=== PATIENT | female | born 1985 | race Caucasian/White ===

== ENCOUNTER 2024-05-17 06:43 | Day surgery (SDC) | payer OTHER, MEDICAID, SELFPAY ==
[2024-05-14 13:56] VITALS: BMI 24.2
[2024-05-17] VITALS (13 sets, daily range): BP systolic 109–130; BP diastolic 65–99; PULSE 67–98; RESP 12–19; TEMP 36.2–36.8; O2SAT 94–99; BMI 24.2; BMI 24.5
--- NOTE | 2024-05-17 | PATH_ITS ---
[facility] Accession Number: [id number] No. of containers..01 Tissue . 01 Material submitted: . uterus - UTERUS AND BILATERAL FFALLOPIAN TUBES AND FIBROID . 01 Diagnosis: UTERUS AND BILATERAL FALLOPIAN TUBES AND FIBROID, LAPAROSCOPIC SUPRACERVICAL HYSTERECTOMY AND BILATERAL SALPINGECTOMY AND FIBROIDECTOMY (WEIGHT 188 GRAMS; AND SEPARATE NODULE 36 GRAMS): Proliferative endometrium, negative for endometrioid intraepithelial neoplasia or malignancy. Myometrium involved by multiple leiomyomas (6 mm-37 mm in greatest dimension); negative for significant atypia. Uterine serosa with no significant histomorphologic abnormality. Fallopian tubes x2 with no significant histomorphologic abnormality. Separate leiomyoma (5.0 x 4.9 x 3.2 cm); negative for atypia. [facility] 05/23/2024 1258 Local . 01 Electronically signed: . Vane Uriostegui MD, Pathologist NPI- [id number] . 01 Gross description: . Received in formalin with two patient identifiers and uterus, bilateral fallopian tubes, and fibroid, is a supracervical hysterectomy (188 gram uterus, 7.1 cm superior to inferior, 6.5 cm medial to lateral, 8.7 cm anterior to posterior) with two attached fimbriated fallopian tubes (due to distortion of the serosal reflections, orientation cannot be definitively determined, 4.7 x 1.0 cm and 5.2 x 1.0 cm, respectively), a separate, smooth, spheroid, rubbery, soft tissue fragment (36 grams, 5.0 x 4.9 x 3.2 cm), and no cervix or additional adnexa. . The uterus has brock, roughened serosa, and the margins are inked blue. A small segment of possible endocervical canal is present measuring 0.9 cm in length. The endometrial cavity is 2.7 cm from cornu to cornu, and 4.4 cm in length with brock, velvety endometrium with a pedunculated red-brock mass measuring 2.5 x 2.0 x 1.8 cm. The endometrium averages 0.3 cm thick, and sectioning the endometrial lesion reveals the cut surface to be pink and soft with distinct separation between the endometrium and the myometrium with the cut surface appearing grossly similar to myometrium. The myometrium is brock and moderately trabecular, measuring up to 3.1 cm in maximum thickness, with multiple well-circumscribed, white, whorled nodules from 0.6 to 3.7 cm in greatest dimension. No hemorrhage or necrosis are identified. . The separate nodule has a white, whorled cut surface with no hemorrhage or necrosis identified. . Both tubes have violaceous serosa with no cysts identified. The longer tube has several well-circumscribed, hemorrhagic lesions 0.1 to 0.9 cm in greatest dimension. Sectioning both tubes reveals an unremarkable stellate lumen. . Cloth Tester sections are submitted as follows: A1: Full thickness section, including endometrial lesion. A2: Full thickness section. A3: Cloth Tester margins. A4: Intramural nodules. A5: Separate nodule. A6: Longer fallopian tube to include one-half of bisected fimbriae and cross-sections, including hemorrhagic lesions. A7: [place] fallopian tube to include one-half of bisected fimbriae and cross-sections. ([id number]) /MRV 05/18/2024 1736 Local . 01 Pathologist provided ICD-10: D25.9, N94.6, N93.9 . 01 CPT . 447741 Specimen Comment: A courtesy copy of this report has been sent to [phone] Performed at: [address] [facility], [place], [place] [id number] MD Mello Curtis MD Phone: [phone]
--- NOTE | 2024-05-17 06:42 | P.HPOB_ITS ---
History of Present Illness History of Present Illness Reason for admission: pelvic pain Narrative: Renetta Michael is a 38 year old female G0 who presents for a laparoscopic supracervical hysterectomy with bilateral salpingectomy secondary to an enlarged fibroid uterus, dysmenorrhea, pelvic pain, and abnormal uterine bleeding. She had an endometrial biopsy in the office which was benign. [facility] Medical History (Updated 05/14/24 @ 13:54 by Quiana Pantoja RN) Epilepsy Surgical History (Updated 05/14/24 @ 13:56 by Quiana Pantoja RN) Hx of sinus surgery (2010) Hx of fusion of cervical spine (2007) Hx of brain surgery (2008) Social History Smoking Status: Former smoker Meds Home Medications and Allergies Home Medications Medication Instructions Recorded Confirmed Type tranexamic acid 500 mg tablet 1,500 mg PO TID PRN Bleeding 05/04/24 05/16/24 History Allergies Allergy/AdvReac Type Severity Reaction Status Date / Time No Known Drug Allergies Allergy Verified 05/16/24 16:32 Exam Narrative Exam Narrative: HEENT: No thyromegaly, no anterior cervical or supraclavicular lymphadenopathy. Lungs:Clear to auscultation bilaterally, no wheezes. Cardiovascular: Regular rate and rhythm, no murmurs, rubs, or gallops. Abdomen: No scars. No hepatosplenomegaly. No masses palpable. External genitalia: Normal Vagina: Normal Cervix: Normal Bimanual exam: 12 Week size anteverted uterus. Mobile. Extremities: No edema Assessment & Plan Assessment & Plan narrative: Assessment: 38-year-old 0 with an enlarged fibroid uterus, dysmenorrhea, pelvic pain, and abnormal uterine bleeding with a negative endometrial biopsy Desires definitive surgical management Plan: Laparoscopic supracervical hysterectomy with bilateral salpingectomy The risks, benefits, and alternatives to the procedure were explained to the patient. The risks including bleeding, infection, injury to the bowel, bladder, or ureters. She also understands that there is a possibility of an open procedure. A full par Q was held and consent form was signed. Time-Based Coding :: [TOTAL MINUTES] spent with patient and on the chart (including review of chart, obtaining history, exam, reviewing outside data, placing orders, documenting exam and treatment plan, and counseling patient) on [DATE].
--- NOTE | 2024-05-17 06:46 | PM.PREOP ---
Pre-operative Note Interval Note History & Physical reviewed/Exam performed by Physician: Yes Changes to H&P: No H&P completed within 30 days and has changed as indicated here:: 05/17/24
[2024-05-17] MEDS: LACTATED RINGERS 1,000 ML 42 ML IV ×3 (07:11→12:22)
[2024-05-17] MEDS: SCOPOLAMINE 1 PATCH TOP (07:13)
[2024-05-17] MEDS: ACETAMINOPHEN IV 1,000 MG/100 ML VIAL 400 MG IV (07:20)
[2024-05-17] MEDS: CEFAZOLIN 2 GM/100 ML PREMIX 100 ML IV (07:55)
--- NOTE | 2024-05-17 08:26 | SUR.OPER ---
Lithotomy on padded OR bed. [place] Pad Positioner under torso. Head on pillow, arms padded and tucked at sides. Legs secured in padded yellow fins stirrups.
[2024-05-17] MEDS: BUPIVACAINE 0.5% (PF) 30 ML, EPINEPHrine 0.15 MG INJ (08:35)
--- NOTE | 2024-05-17 11:24 | PM.OP.1 ---
Procedure & Clinicians Procedure: Exploratory laparotomy Cystorrhaphy 83828 Same procedure as scheduled: No Indications: 38 year old female G0 who presents for a laparoscopic supracervical hysterectomy with bilateral salpingectomy secondary to an enlarged fibroid uterus, dysmenorrhea, pelvic pain, and abnormal uterine bleeding. During her laparoscopic procedure with Dr. Fragoso, an inadvertent trocar injury to the bladder was appreciated, therefore, Urology was consulted for evaluation and management. Surgeon: Carlos Altamirano Smokehouse Operator: Bertha Fragoso Click Yes if Unassisted: No Anesthesia Type: General Operative Notes Findings: Anterior and posterior bladder wall injury consistent with a through and through trocar injury to the bladder. Closure Type: not applicable Specimen(s): none sent Applied: catheter Estimated Blood Loss (mL): 5 Blood products transfused: none Procedure in detail: I was consulted to present to OR 2 for evaluation of a possible trocar injury to the bladder during a laparoscopic supracervical hysterectomy with bilateral salpingectomy with Dr. Fragoso. Patient had already been prepped and draped using standard sterile technique, please refer to SHAFT HEADMAN's dictation for separate details regarding this. The injury was noted to be intraperitoneal, therefore, the decision was made to proceed with a Pfannensteil incision. This incision was sharply incised using a 10 blade. The subcutaneous tissue and fascia was incised using a combination of sharp and Bovie electrocautery dissection. The fascia was then sharply incised and the rectus muscles were spread bluntly. The rectus fascia was then opened, exposing the pre-peritoneal space. Blunt dissection was utilized to identify the peritoneum which was noted to have a small hole from a prior trocar placement. This was sharply opened wide enough to allow for extraction of the uterus and specimen bag. The cota catheter was then filled with roughly 200cc of saline and a bladder leak was appreciated on the anterior bladder wall and the posterior bladder wall, consistent with a through and through trocar injury. A 10cm cystotomy incision was then made, incorporating the previously mentioned anterior cystotomy. This incision was made using bovie electrocautery. The bladder was then fully inspected from the inside. The cota catheter and balloon were easily visualized. Both ureteral orifices were noted to be orthotopic in nature and not involved. A 2cm laceration in the posterior bladder wall was readily apparent. This incision was then repaired in 2-layers using 3-0 Vicryl in a running fashion. The bladder was then closed in two layers using 3-0 Vicryl. 240cc of saline was then instilled via the cota catheter and no bladder leak was appreciated from either repair site. The bladder was then drained and the peritoneum inspected for active bleeding, none of which was noted. The case was then turned over to the SHAFT HEADMAN team for fascial and wound closure, please see their separate dictation for further details. Recommendations: Cota catheter will remain in place for at least two weeks to allow for the bladder to heal. Will have a cystogram performed prior to removal of the catheter. Recommend anticholinergics for bladder spasmodics. Urology will follow along while she is in the hospital. Complications: none Post-operative Condition: stable Disposition: Acute Care Plan for aftercare: Cota catheter will remain in place for at least two weeks to allow for the bladder to heal. Will have a cystogram performed prior to removal of the catheter. Recommend anticholinergics for bladder spasmodics. Urology will follow along while she is in the hospital.
--- NOTE | 2024-05-17 11:29 | PM.GYNOP.1 ---
Operative Date/Time/Diagnoses Date of procedure: 05/17/24 Time of procedure: 11:29 Pre-op diagnosis: Dysmenorrhea Pelvic pain Enlarged fibroid uterus Menorrhagia Post-op diagnosis: same Procedure & Clinicians Procedure: Procedures Operation Date: 05/17/24 08:00 Actual Procedure Side Surgeon p Laparoscopic Supracervical Hysterectomy with bilateral salpingectomy, w/ mini open lap, repair of cystonomy Bertha Fragoso MD Indications: 38 year old G0 with menorrhagia, dysmnorrhea, pelvic pain and enlarged fibroid uterus Surgeon: Bertha Fragoso Supervisor Ordnance Truck Installation: George Torres Anesthesia Type: General and Local Operative Notes Findings: 12 wk size multifibroid uterus Normal tubes Ovaries bilaterally with endometriosis Small area of endometriosis on the peritoneum over the appendix Normal liver and gallbladder Closure Type: primary Specimen(s): left tube, right tube and uterus Applied: catheter (Baldwin catheter to continuous drainage) Estimated blood loss (mL): 75 Blood products transfused: none Procedure in detail: The patient was taken to the operating room where she was placed in the dorsal supine position. After adequate general endotracheal anesthesia was achieved, she was placed in the dorsal lithotomy position, and prepped and draped in the usual sterile fashion. A time-out was performed. A bivalve speculum was placed into the vagina and the anterior lip of the cervix was grasped with a single-tooth tenaculum. The cervical os was sequentially dilated until the Zumi uterine manipulator could pass easily into the endometrial cavity. The single-tooth tenaculum was removed from the anterior lip of the cervix. The bivalve speculum was removed from the vagina. Attention was turned to the abdomen where 6 cc of 0.5% Marcaine with epinephrine were injected in the umbilical fold. A 5 mm incision was made. The Veress needle was placed into the peritoneal cavity, and its placement confirmed by aspiration and drop test. The abdominal cavity was insufflated with 2.8 L of CO2. The Veress needle was removed, and a 5 mm trocar was placed without difficulty. Two other incisions were made 4 cm lateral to the midline at the level of the umbilicus after 6 cc of 0.5% Marcaine with epinephrine were injected. Two additional 5 mm trocars were placed under direct visualization. The pelvis and abdomen were examined with the findings noted above. The right tube was grasped with an atraumatic grasper. Using the power seal, the mesosalpinx was cauterized and cut all the way down to the cornua of the uterus. The utero-ovarian ligament was cauterized and cut. The broad ligament was cauterized and cut. The bladder flap was created using the power seal with cautery and cut fpc across. The uterine arteries on the right side were cauterized with the power seal. All of this was repeated on the patient's left side. The Zumi was removed from the uterus. The Lisa loop was placed 2 cm above the uterosacral ligaments. The uterus was amputated from the cervix. There was a fibroid sitting at the top of the cervix. This was removed. The endocervical canal was extensively cauterized with the spatula cautery. Hemostasis was achieved. 6 cc of 0.5% Marcaine with epinephrine were injected above the pubic symphysis. A 12 mm incision was made. The 12 mm trocar was placed into the peritoneal cavity. The endobag was placed through the trocar. The fibroid was placed into the bag. Upon attempts at putting the uterus in the bag the bag kept closing. The bag with the fibroid was then removed after the trocar was removed, through the fascial incision. At this point there was some carbon dioxide gas in the Baldwin bag and the tip of the Baldwin was visualized in the peritoneal cavity. Urology, Dr. Altamirano, was consulted intraoperatively and repair of the bladder per a separate dictation The bag with the fibroid and the uterus with the tubes attached were removed through the mini-laparotomy incision. At the completion of the cystotomy repair, the fascia was reapproximated with 0 Vicryl in a running fashion. The subcutaneous layer was copiously irrigated with warm normal saline. Six simple interrupted sutures with 3-0 Vicryl were placed to reapproximate the subcutaneous layer. The skin was closed with 4-0 Monocryl in a subcuticular fashion. The 3 laparoscopy incisions were also closed with 4-0 Monocryl in a subcuticular fashion. Steri-Strips were placed over all of the incisions. The laparoscopy incisions had Allevyn dressings placed, and the mini-laparotomy had a small Aquacel dressing placed. Sponge, lap, and instrument counts were correct x2. The patient tolerated the procedure well, and was taken to PACU in stable condition. Complications: other (Inadvertent cystotomy with repair) Post-operative Condition: stable Disposition: PACU Plan for aftercare: To acute care after recover
[2024-05-17] MEDS: hydrOXYzine 50 MG/ML INJ 25 MG IM (12:13)
[2024-05-17] MEDS: OXYCODONE IR 5 MG TABLET PO ×2 (12:14→16:37)
[2024-05-17] MEDS: ONDANSETRON 4 MG/2 ML INJ IV ×2 (12:14→16:37)
[2024-05-17] MEDS: HYDROMORPHONE 1 MG INJ IV (12:16)
[2024-05-17] MEDS: KETOROLAC 30 MG/ML VIAL IV ×2 (13:01→18:02)
[2024-05-17] MEDS: ACETAMINOPHEN 325 MG TABLET 650 MG PO (13:01)
[2024-05-17] MEDS: LACTATED RINGERS 1,000 ML 100 ML IV (13:02)
[2024-05-17 14:29] LABS: BUN Creatinine Ratio 16.4 (6-22); Blood Urea Nitrogen 11 mg/dL (7-17); Calcium 8.8 mg/dL (8.4-10.2); Carbon Dioxide 22 mmol/L (22-32); Chloride 106 mmol/L (98-107); Estimated Glomerular Filt Rate > 60 mL/min (>60); Glucose 146 mg/dL (70-100); HEMOLYSIS < 15 (0-50); Sodium 133 mmol/L (137-145)
[2024-05-17] MEDS: DOCUSATE 100 MG CAPSULE 200 MG PO (21:17)
[2024-05-18] MEDS: LACTATED RINGERS 1,000 ML 100 ML IV (00:29)
[2024-05-18] MEDS: KETOROLAC 30 MG/ML VIAL IV ×2 (00:30→05:20)
[2024-05-18] MEDS: ACETAMINOPHEN 325 MG TABLET 650 MG PO ×3 (00:31→11:45)
[2024-05-18 05:37] LABS: Add Manual Diff / Slide Review NO; Basophils Absolute Auto 0 /uL (0-100); Basophils Percent Auto 0.3 % (0-2); Eosinophils Absolute Auto 100 /uL (0-450); Eosinophils Percent Auto 0.7 % (2-4); Hematocrit 27.5 % (36-46); Hemoglobin 9.2 g/dL (12.0-16.0); Lymphocytes Absolute Auto 2600 /uL (1100-4500); Lymphocytes Percent Auto 23.6 % (25-40); Mean Corpuscular HGB Conc 33.3 % (30-36); Mean Corpuscular Volume 81.1 fL (80-100); Monocytes Absolute Auto 1000 /uL (0-900); Monocytes Percent Auto 8.8 % (3-14); Neutrophils Absolute Auto 7200 /uL (1500-7000); Neutrophils Percent Auto 66.6 % (50-75); Platelet Count 239 X10^3/uL (150-400); Red Cell Distribution Width 14.6 % (11.6-14.8); White Blood Cell Count 10.8 X10^3/uL (4.5-11.0)
[2024-05-18 05:54] LABS: BUN Creatinine Ratio 9.2 (6-22); Blood Urea Nitrogen 7 mg/dL (7-17); Calcium 8.4 mg/dL (8.4-10.2); Carbon Dioxide 24 mmol/L (22-32); Chloride 108 mmol/L (98-107); Estimated Glomerular Filt Rate > 60 mL/min (>60); Glucose 92 mg/dL (70-100); HEMOLYSIS < 15 (0-50); Potassium 3.9 mmol/L (3.4-5.1); Sodium 136 mmol/L (137-145)
[2024-05-18 08:00] VITALS: BP 122/77; PULSE 66; RESP 16; TEMP 36.8; O2SAT 97
--- NOTE | 2024-05-18 08:05 | PM.DS.1 ---
History of Present Illness History of Present Illness Date Patient Seen: 05/18/24 Time Patient Seen: 08:05 Chief complaint: Postoperative recovery Narrative: Renetta Michael is a 38 year old female G0 who presents for a laparoscopic supracervical hysterectomy with bilateral salpingectomy secondary to an enlarged fibroid uterus, dysmenorrhea, pelvic pain, and abnormal uterine bleeding. She had an endometrial biopsy in the office which was benign. Discharge Providers Provider Discharge Date: 05/18/24 Primary care physician: Neha Lew MD Discharge provider: George Torres MD Summary Hospital Course Discharge Diagnosis: Menorrhagia Dysmnorrhea Chronic pelvic pain Enlarged fibroid uterus Minimal pelvic endometriosis Status post laparoscopic supracervical hysterectomy with bilateral salpingectomy and fulguration of endometrial implants, complicated by intraoperative bladder injury requiring laparotomy for bladder repair Hospital Course: On the morning of 05/17/2024, the patient underwent laparoscopic supracervical hysterectomy with bilateral salpingectomy and fulguration of endometrial implants. During the course of that surgery however bladder injury was noted and intraoperative urologic consultation obtained. Full details of both procedures are well summarized in the operative notes of that date by Dr. Bertha Fragoso (SUPPLY TECHNICIAN), and Dr. Carlos Altamirano (UROL). Following her surgery the patient has done extremely well with prompt return of bowel function, she is ambulating independently, tolerating regular diet, and her pain is well controlled with oral pain medications. She will be discharged at this time to home with an indwelling Baldwin catheter and leg bag after counseling regarding precautionary symptoms, limitations of activity, medications, and follow-up which will be in 1 week or less. She will be scheduled to have cystogram in 2 weeks with removal of the catheter at that time if bladder integrity is confirmed. Medications at discharge will include resumption of all preadmission medications and oxycodone 5 mg p.o. Q 4-6 hours as needed for pain, dispense 20 with no refills, and Zofran 8 mg p.o. every 8 hours as needed for nausea and vomiting. Status at Discharge Cognitive/behavioral status at discharge: oriented Functional status at discharge: independent ambulation Overall status at discharge: patient is progressing back to baseline Time Spent with Patient Time spent: Less than 30 minutes Exam Vital Signs (past 8 hours): Oxygen Delivery Method Room Air Oxygen Flow Rate 0 Const General: cooperative and comfortable Nutritional Appearance: average body habitus Orientation: alert and oriented x3 HENMT Head: normal to inspection, atraumatic and abrasion Ears: hearing grossly normal bilaterally Face and sinus: face symmetric Eyes General: appearance normal, both eyes and all related structures Conjunctivae: conjunctivae normal Sclera: sclerae normal EOM: EOM intact bilaterally Neck Neck: normal visual inspection Resp Effort & Inspection: normal respiratory effort and able to speak in complete sentences Auscultation: clear to auscultation bilaterally Cardio Rate: regular rate Rhythm: regular rhythm Heart Sounds: S1 normal, S2 normal and no murmurs GI Inspection: normal to inspection and incision (Surgical dressings clean and dry) Palpation: soft, no hepatosplenomegaly and tender (Mild, diffuse postsurgical tenderness) External Female Exam: other (No significant bleeding noted) Extrem General: no calf tenderness Psych Appearance: grossly normal Mental Status: mental status grossly normal Speech and Movement: speech and movement normal Mood: congruent mood Affect: normal affect Attitude: cooperative Thought Process: normal Thought Content: normal Judgment: judgment good Objective Labs 05/18/24 05:10 05/18/24 05:10 Labs: Laboratory Results - last 24 hr 05/17/24 05/18/24 14:00 05:10 WBC 10.8 RBC 3.40 L Hgb 9.2 L Hct 27.5 L MCV 81.1 MCH 27.0 MCHC 33.3 RDW 14.6 Plt Count 239 Neut % (Auto) 66.6 Lymph % (Auto) 23.6 L [place] % (Auto) 8.8 Eos % (Auto) 0.7 L Baso % (Auto) 0.3 Neut # (Auto) 7200 H Lymph # (Auto) 2600 [place] # (Auto) 1000 H Eos # (Auto) 100 Baso # (Auto) 0 Sodium 133 L 136 L Potassium 4.0 3.9 Chloride 106 108 H Carbon Dioxide 22 24 BUN 11 7 Creatinine 0.67 0.76 Estimated GFR > 60 > 60 BUN/Creatinine Ratio 16.4 9.2 Glucose 146 H 92 Calcium 8.8 8.4 PFSH Medical History Epilepsy Surgical History Hx of sinus surgery (2010) Hx of fusion of cervical spine (2008) Hx of brain surgery (2009) Social History household members: family Smoking Status: Former smoker alcohol intake: current Discharge Assessment & Plan Assessment and Plan Assessment: Menorrhagia Dysmnorrhea Chronic pelvic pain Enlarged fibroid uterus Minimal pelvic endometriosis Status post laparoscopic supracervical hysterectomy with bilateral salpingectomy and fulguration of endometrial implants, complicated by intraoperative bladder injury requiring laparotomy for bladder repair Plan of Treatment: Routine postoperative care with indwelling Baldwin catheter x2 weeks. Cystogram to be scheduled for 2 weeks postop to evaluate bladder integrity prior to catheter removal. Discharge Plan Discharge Plan Patient Disposition: Home Provider Discharge Comment: Call with fever, chills, redness or drainage around the incisions, or bleeding vaginally more than spotting to light Call with bright red blood in the Baldwin bag Ibuprofen 600 mg every 6 hours as needed Tylenol 650 mg every 6 hours as needed Stool softener as needed Discharge orders & Medications Discharge Orders: Discharge (Order); Ordered 05/18/24 Ordered By: George Torres Prescriptions: New oxycodone 5 mg tablet 5 mg PO Q4H PRN (Reason: pain) Qty: 20 0RF ondansetron HCl 8 mg tablet 8 mg PO Q8H PRN (Reason: nausea and vomiting) Qty: 10 0RF Discontinued tranexamic acid 500 mg tablet 1,500 mg PO TID PRN (Reason: Bleeding) Follow up/Referrals: Bretha Fragoso MD [Physician] - (Dr. Fragoso we will call patient on May 21, 2024 to check in and then we will set up a 2 week appointment for a cystogram and appointment with) Diet/Activity/Treatments Diet: Regular Activity: No heavy lifting Skin/Wound/Dressing Care Report to your healthcare provider any signs of infection, such as:: chills, fever, increased pain, unusual drainage and unusual redness Dressing: Remove pink dressings with attached white guaze on Tuesday morning after a shower Leave steri strips in place Leave lower dressing in place May shower daily Visit Report/Discharge Packet Instructions: DI for Hysterectomy, DI for Laparoscopy, How to Care for Your Baldwin Catheter -- Female, DI for Prescription Opioid Use Stand Alone Forms: Surgery Discharge Discharge Data Primary Care Provider: Neha Lew Attending Provider: Bertha Fragoso Quality VTE Deep Vein Thrombosis/Pulmonary Embolism Present on Admission: No
[2024-05-18] MEDS: ONDANSETRON 4 MG/2 ML INJ IV (10:23)
[2024-05-18] MEDS: OXYCODONE IR 5 MG TABLET PO (10:24)
--- NOTE | 2024-05-18 11:00 | P.CONS_ITS ---
History of Present Illness Consult details Date Patient Seen: 05/18/24 Time Patient Seen: 10:45 Chief complaint: Postoperative recovery Narrative: 38 year old female G0 who presents for a laparoscopic supracervical hysterectomy with bilateral salpingectomy secondary to an enlarged fibroid uterus, dysmenorrhea, pelvic pain, and abnormal uterine bleeding. During her laparoscopic procedure with Dr. Fragoso, an inadvertent trocar injury to the bladder was appreciated, therefore, Urology was consulted for evaluation and management. She is now POD 1 s/p an exploratory laparotomy and cystorrhaphy. She continues to suffer from abdominal pain and shoulder pain and admits to intermittent discomfort with her urinary catheter. She has been able to ambulate without issues. Meds Home Medications and Allergies Home Medications Medication Instructions Recorded Confirmed Type oxycodone 5 mg tablet 5 mg PO Q4H PRN pain #20 tabs 05/17/24 Rx ondansetron HCl 8 mg tablet 8 mg PO Q8H PRN nausea and 05/18/24 Rx vomiting #10 tabs Allergies Allergy/AdvReac Type Severity Reaction Status Date / Time No Known Drug Allergies Allergy Verified 05/16/24 16:32 Review of Systems Review of Systems Narrative: CONSTITUTIONAL: Denies weight loss, fevers, chills. HEENT: Denies change in vision, hearing. RESP: Denies SOB, cough. CV: Denies palpations, CP. GI: Admits to abdominal pain, denies nausea, vomiting, diarrhea. : Admits to some cota catheter discomfort. MSK: Denies myalgia, joint pain. SKIN: Denies rash, pruritus. NEURO: Denies headache, syncope. PSYCH: Denies recent change in mood, anxiety, depression. Exam Vital Signs (past 8 hours): Oxygen Delivery Method Room Air Oxygen Flow Rate 0 Narrative Exam Narrative: GEN: Alert and oriented X3. No acute distress. Well-nourished. EYES: PERRLA, EOMI. HENT: Moist mucus membranes, no scleral icterus, normal neck ROM. RESP: Unlabored breathing, equal rise and fall of chest bilaterally, no cyanosis appreciated. CV: No peripheral edema, unremarkable heart rate. ABD: Soft, appropriately tender to palpation, laparotomy incisions covered with dressing, Pfannensteil incision covered with dressing, no guarding/rebound/rigidity. : Cota catheter secured and draining clear yellow urine. EXT: No edema, clubbing or cyanosis. SKIN: No rashes or lesions. NEURO: No focal neurologic deficits, CN II-XII grossly intact. PSYCH: Cooperative, appropriate mood and affect. Objective Labs 05/18/24 05:10 05/18/24 05:10 Labs: Laboratory Results - last 24 hr 05/17/24 05/18/24 14:00 05:10 WBC 10.8 RBC 3.40 L Hgb 9.2 L Hct 27.5 L MCV 81.1 MCH 27.0 MCHC 33.3 RDW 14.6 Plt Count 239 Neut % (Auto) 66.6 Lymph % (Auto) 23.6 L [place] % (Auto) 8.8 Eos % (Auto) 0.7 L Baso % (Auto) 0.3 Neut # (Auto) 7200 H Lymph # (Auto) 2600 [place] # (Auto) 1000 H Eos # (Auto) 100 Baso # (Auto) 0 Sodium 133 L 136 L Potassium 4.0 3.9 Chloride 106 108 H Carbon Dioxide 22 24 BUN 11 7 Creatinine 0.67 0.76 Estimated GFR > 60 > 60 BUN/Creatinine Ratio 16.4 9.2 Glucose 146 H 92 Calcium 8.8 8.4 PFSH Medical History Epilepsy Surgical History Hx of sinus surgery (2010) Hx of fusion of cervical spine (2007) Hx of brain surgery (2008) Social History household members: family Tobacco & Substance Use Smoking Status: Former smoker alcohol intake: current Assessment & Plan Assessment and plan (1) Intraoperative bladder injury: Status: Acute Plan: 38 year old female G0 who presents for a laparoscopic supracervical hysterectomy with bilateral salpingectomy secondary to an enlarged fibroid uterus, dysmenorrhea, pelvic pain, and abnormal uterine bleeding. During her laparoscopic procedure with Dr. Fragoso, an inadvertent trocar injury to the bladder was appreciated, therefore, Urology was consulted for evaluation and management. She is now POD 1 s/p an exploratory laparotomy and cystorrhaphy. She is otherwise recovering as expected. Discussed catheter care with her in detail to include transitioning from her leg to overnight bag. She will return to clinic in two weeks, the same day as her cystogram, to ensure that her bladder is healed prior to removal of her cota catheter. She was instructed this will likely be on Jun 05 2024. Should she develop severe bladder spasms, would recommend Oxybutynin ER 5mg daily. Please ensure that she is having soft daily bowel movements as constipation can worsen her bladder spasms. Time-Based Coding :: [TOTAL MINUTES] spent with patient and on the chart (including review of chart, obtaining history, exam, reviewing outside data, placing orders, documenting exam and treatment plan, and counseling patient) on [DATE]. PROFEE Charge Codes Inpatient or Observation consultation: [id number]
--- NOTE | 2024-05-18 11:56 | PC.NURSE ---
Pt discharged home at 1200, escorted off floor in wheelchair accompanied by spouse and hospital staff. IV removed, discharge teaching provided including new medications, follow up appointments and worsening symptoms. [place] education provided and reviewed with patient and . Questions answered and concerns addressed. Patient left the floor the floor with all belongings.
--- NOTE | 2024-05-18 12:38 | CM.DANOTE ---
DCP Assessment Note: Pt is a 38yo female, resident of [facility], is admitted for bladder injury. Pt lives in a house with her mother. Pt's Primary Care Provider is Dr. Neha Lew MD and insurance is [employer] and Medicaid. Reviewed chart and team rounds for pt's medical status and initial discharge needs. DCP met w/patient at bedside; introduced self and role. Patient was prepared for discharge and attempting to catch next ferry back home. Per RN, pt denied any other discharge needs at this time, has ferry pass to discharge home. Plan: Pt discharged home with family. CM team will follow closely for coordination of discharge plans. CARLOS Alvarado Discharge Planning/Care Management CM Discharge Assessment Start: 05/18/24 12:36 Freq: Status: Active Protocol: Document 05/18/24 12:36 MW (Rec: 05/18/24 12:37 MW [id number]) Discharge Planning Assessment Assigned Packer Operator Automatic BASILIA Villavicencio DPOA/Assigned Designee Name Mother Grant Contact Information [phone] Advance Directives? No History Provided By Patient,Medical Record Has Patient been admitted in last 30 No days? Prior Living Arrangements House Household Members family Type of transporation used prior to Drives own vehicle admit Independent with ADL's Yes Is patient alert and oriented? Yes Caregiver for Another No Discharge Plan Home Whiteboard Updated in Patient Room with No name and ext. # of Packer Operator Automatic Please Provide Date Initial DC 05/18/24 Assessment Was Performed Next Review Type Continued Stay Review
--- NOTE | 2024-05-24 14:00 | SUR.PHASEI ---
Late entry from Date of Service on 05/17/2024: Dilaudid 0.5 mg IV given for pain; 0.5 mg wasted but forgot to waste in Pyxis machine.
== END 2024-05-18 12:25 | disposition home or self-care (01) ==
LOC: OR 06:44 → AC 06:45
PROVIDERS: PCP Family Medicine; Referring Provider Obstetrics & Gynecology; Visit Provider Obstetrics & Gynecology
PROC: 0UT94ZL Resection of Uterus, Supracervical, Percutaneous Endoscopic Approach (ICD-10-PCS; CPT 58542; principal; 2024-05-17 08:00)
DX: N94.6 Dysmenorrhea, unspecified (principal); D25.9 Leiomyoma of uterus, unspecified; N93.9 Abnormal uterine and vaginal bleeding, unspecified; N99.71 Accidental puncture and laceration of a genitourinary system organ or structure during a genitourinary system procedure
CPT/HCPCS: 58542; 51865; 36415; 80048; 85025; J0134; J0171; J0330; J0690; J1100; J1170; J1885; J2250; J2405; J2704; J3010; J3410; J3490

== ENCOUNTER → 2024-06-01 08:30 | Outpatient (CLI) | payer OTHER, MEDICAID, SELFPAY ==
[2024-05-17 13:04] VITALS: BMI 24.5
--- NOTE | 2024-06-01 08:31 | DI.CT.S_ITS ---
PROCEDURE: CT CYSTOGRAM INDICATIONS: Bladder injury TECHNIQUE: Both before and after gravity instillation of 10% Isovue contrast solution into the bladder through a Baldiwn catheter, 5 mm axial images acquired from the bladder dome to the symphysis. 5 mm thick coronal and sagittal reformats were acquired. For radiation dose reduction, the following was used: automated exposure control, adjustment of mA and/or kV according to patient size. COMPARISON: None. FINDINGS: Image quality: Diagnostic. Bladder: Normal wall thickness. No extravasation. No clots. Distal Ureters: No reflux. Nondilated. PELVIS: Peritoneum and Bowel: Bowel loops demonstrate normal wall thickness and caliber. No free fluid or air. Pelvic Organs: No pelvic mass. Pelvic Nodes: No enlarged lymph nodes. Miscellaneous: Extensive soft tissue edema present anterior to the symphysis pubis and in the ventral subcutaneous fat in the pelvis, as well as extending down into the external genitalia region. Bones: No aggressive osseous abnormality. IMPRESSION: 1. Extensive edema present in the ventral subcutaneous fat, possibly indicating sequelae of trauma. 2. No pelvic bone fracture identified. 3. Intact bladder, unremarkable. Dictated by: Jluis Vazquez M.D. on 06/01/2024 at 10:19 Approved by: Jluis Vazquez M.D. on 06/01/2024 at 10:22
== END ==
PROVIDERS: PCP Family Medicine; Referring Provider Obstetrics & Gynecology; Visit Provider Obstetrics & Gynecology
DX: N99.81 Other intraoperative complications of genitourinary system (principal)
CPT/HCPCS: 72194; Q9967

== ENCOUNTER 2024-06-03 18:28 | Observation (INO) | payer OTHER, MEDICAID, SELFPAY ==
[2024-05-17 13:04] VITALS: BMI 24.5
[2024-06-03] VITALS (8 sets, daily range): BP systolic 109–124; BP diastolic 61–80; PULSE 59–69; RESP 14–18; TEMP 36.9–37.6; O2SAT 100; BMI 24.2
[2024-06-03 19:18] LABS: Add Manual Diff / Slide Review NO; Basophils Absolute Auto 100 /uL (0-100); Basophils Percent Auto 0.6 % (0-2); Eosinophils Absolute Auto 600 /uL (0-450); Eosinophils Percent Auto 4.8 % (2-4); Hematocrit 33.1 % (36-46); Hemoglobin 10.8 g/dL (12.0-16.0); Lymphocytes Absolute Auto 2600 /uL (1100-4500); Mean Corpuscular HGB Conc 32.6 % (30-36); Mean Corpuscular Volume 79.8 fL (80-100); Monocytes Absolute Auto 900 /uL (0-900); Monocytes Percent Auto 7.1 % (3-14); Neutrophils Absolute Auto 8200 /uL (1500-7000); Neutrophils Percent Auto 66.5 % (50-75); Platelet Count 493 X10^3/uL (150-400); Red Blood Cell Count 4.15 X10^6/uL (4.0-5.2); Red Cell Distribution Width 14.6 % (11.6-14.8); White Blood Cell Count 12.3 X10^3/uL (4.5-11.0)
[2024-06-03 19:21] LABS: Alanine Aminotransferase 9 IU/L (<35); Albumin 4.4 g/dL (3.5-5.0); Albumin Globulin Ratio 1.3 (1.0-2.8); Alkaline Phosphatase 55 U/L (38-126); Aspartate Aminotransferase 18 IU/L (14-36); BUN Creatinine Ratio 12.8 (6-22); Bilirubin Total 0.3 mg/dL (0.2-1.3); Blood Urea Nitrogen 10 mg/dL (7-17); Calcium 9.4 mg/dL (8.4-10.2); Carbon Dioxide 25 mmol/L (22-32); Chloride 104 mmol/L (98-107); Estimated Glomerular Filt Rate > 60 mL/min (>60); Globulin 3.4 g/dL (1.7-4.1); Glucose 96 mg/dL (70-100); HEMOLYSIS < 15 (0-50); Lipase 119 U/L (23-300); Sodium 138 mmol/L (137-145); Total Protein 7.8 g/dL (6.3-8.2)
[2024-06-03 19:45] LABS: Pregnancy Test Urine Negative (Negative)
--- NOTE | 2024-06-03 19:47 | ED_ITS ---
HPI - Skin/Abscess/Foreign Bdy General Chief complaint: Skin/Abscess/Foreign Body Stated complaint: Fever/Redness, Sx Site Discomfort Time Seen by Provider: 06/03/24 19:18 Source: patient Mode of arrival: Ambulatory Limitations: no limitations History of Present Illness HPI narrative: Patient is a 38-year-old female who recently underwent a hysterectomy and salpingectomy. Still has her cervix. Still has her ovaries. During the surgery there was an injury to her bladder. Urology was involved. She does had her urinary catheter removed 2 days ago. She comes in the emergency department today because she started to develop discomfort and redness to the left side of the surgical incision. She denies any urinary issues. No change in bowel. No abdominal tenderness. Had a fever earlier today and did take medications for this. No vomiting. No chest pain or shortness of breath. Was told to come to the emergency department by her OB provider. Related Data Previous Rx's Medication Instructions Recorded oxycodone 5 mg tablet 5 mg PO Q4H PRN pain #20 tabs 05/17/24 ondansetron HCl 8 mg tablet 8 mg PO Q8H PRN nausea and 05/18/24 vomiting #10 tabs tramadol 50 mg tablet 50 mg PO Q4H PRN pain #30 tabs 06/01/24 Allergies Allergy/AdvReac Type Severity Reaction Status Date / Time No Known Drug Allergies Allergy Verified 06/01/24 10:36 Review of Systems Constitutional Constitutional: Reports system reviewed and no additional complaints, except as documented Cardiovascular Cardiovascular: Reports system reviewed and no additional complaints, except as documented Respiratory Respiratory: Reports system reviewed and no additional complaints, except as documented Gastrointestinal Gastrointestinal: Reports system reviewed and no additional complaints, except as documented Integumentary/Breasts Skin/Breast: Reports system reviewed and no additional complaints, except as documented Neurologic Neurologic: Reports system reviewed and no additional complaints, except as documented Hematologic/Lymphatic On Anticoagulants: No Patient History Medical History Epilepsy Surgical History Hx of sinus surgery (2010) Hx of fusion of cervical spine (2007) Hx of brain surgery (2008) Social History household members: family Smoking Status: Former smoker alcohol intake: current Smoking Status: Former smoker alcohol intake frequency: a few times a month Substance Use Type: marijuana Exam Initial Vital Signs Initial Vital Signs: Vital Signs Temperature 98.4 F 06/03/24 18:35 Pulse Rate 60 06/03/24 18:35 Respiratory Rate 18 06/03/24 18:35 Blood Pressure 110/61 06/03/24 18:35 Pulse Oximetry 100 06/03/24 18:35 Oxygen Delivery Method Room Air 06/03/24 18:35 Const General: cooperative and comfortable HENMT Head: normal to inspection and normocephalic GI Inspection: normal to inspection and non-distended Palpation: soft and No tender Skin Other: Surgical incision appears well. No dehiscence. There is redness on the left side of the surgical incision. No crepitus. No abscess felt. Course Orders Ordered: ED Orders 06/03/24 18:55 Complete Blood Count AUTO DIFF Stat Comprehensive Metabolic Panel Stat Lactate (Lactic Acid) Stat Lipase Stat Procalcitonin Stat 06/03/24 19:21 Test Urine Stat Urine Culture Stat Urine Microscopic Stat 06/03/24 19:48 CT abdomen pelvis w con Stat 06/03/24 20:00 Blood Culture Stat Acetaminophen (Acetaminophen 325 Mg Tablet) 650 mg PO Q6H [facility] Last Admin: 06/03/24 21:31 Dose: 650 mg Documented By: RUEL Docusate Sodium (Docusate 100 Mg Capsule) 100 mg PO BID [facility] Last Admin: 06/03/24 21:31 Dose: 100 mg Documented By: RUEL Lactated Ringer's (Lactated Ringers) 1,000 mls @ 100 mls/hr IV CONT [facility] Last Admin: 06/03/24 21:32 Dose: 100 mls/hr Documented By: RUEL Clindamycin Phosphate (Cleocin) 600 mg in 50 mls @ 50 mls/hr IV Q8H [facility] Last Admin: 06/03/24 22:18 Dose: 50 mls/hr Documented By: RUEL Ibuprofen (Ibuprofen 600 Mg Tablet) 600 mg PO Q6H [facility] Last Admin: 06/03/24 21:31 Dose: 600 mg Documented By: RUEL Lactobacillus Acidophilus (Lactobacillus Acidophilus Tablet) 1 each PO BIDWM [facility] Naloxone HCl (Naloxone 0.4 Mg/Ml Vial) 0.2 mg IV Q2MIN PRN PRN Reason: Opiate Reversal Ondansetron HCl (Ondansetron 4 Mg/2 Ml Inj) 4 mg IV NOW PRN PRN Reason: Nausea And Vomiting Ondansetron HCl (Ondansetron 4 Mg Odt) 4 mg PO NOW PRN PRN Reason: Nausea And Vomiting Ondansetron HCl (Ondansetron 4 Mg Odt) 4 mg PO Q8HR PRN PRN Reason: Nausea And Vomiting Tramadol HCl (Tramadol 50 Mg Tablet) 50 mg PO QID PRN PRN Reason: Pain, Moderate (4-6) Zolpidem Tartrate (Zolpidem 5 Mg Tablet) 5 mg PO BEDTIME PRN PRN Reason: Sleep Discontinued Medications Ceftriaxone Sodium 1,000 mg/ (Sodium Chloride) 100 mls @ 200 mls/hr IV NOW ONE Stop: 06/03/24 19:47 Last Infusion: 06/03/24 20:35 Dose: Infused Documented By: Admin: 06/03/24 20:01 Dose: 200 mls/hr Documented By: MICHELLE Cefazolin Sodium 1 gm/ Sodium (Chloride) 100 mls @ 200 mls/hr IV NOW ONE Stop: 06/03/24 21:18 Last Admin: 06/03/24 21:32 Dose: 200 mls/hr Documented By: RUEL Vital Signs Vital signs: Vital Signs - 8 hr 06/03/24 18:35 06/03/24 19:13 06/03/24 19:20 Temperature 98.4 F Pulse Rate 60 67 62 Respiratory Rate 18 Blood Pressure 110/61 Pulse Oximetry 100 100 100 Oxygen Delivery Method Room Air 06/03/24 19:20 06/03/24 19:30 06/03/24 19:30 Temperature Pulse Rate 59 L Respiratory Rate Blood Pressure 124/66 115/62 Pulse Oximetry 100 Oxygen Delivery Method 06/03/24 20:00 06/03/24 20:00 06/03/24 20:15 Temperature Pulse Rate 65 69 Respiratory Rate Blood Pressure 109/68 Pulse Oximetry 100 100 Oxygen Delivery Method 06/03/24 20:15 06/03/24 20:30 Temperature Pulse Rate 68 Respiratory Rate Blood Pressure 115/73 Pulse Oximetry 100 Oxygen Delivery Method MDM - Skin/Abscess/Foreign Bdy Medical Records Attestation: I reviewed the patient's medical records. Lab Data Attestation: I reviewed the patient's lab results. 06/03/24 18:55 06/03/24 18:55 Labs: Lab Results 06/03/24 06/03/24 Range/Units 18:55 19:21 WBC 12.3 H (4.5-11.0) X10^3/uL RBC 4.15 (4.0-5.2) X10^6/uL Hgb 10.8 L (12.0-16.0) g/dL Hct 33.1 L (36-46) % MCV 79.8 L (80-100) fL MCH 26.0 (26-34) PG MCHC 32.6 (30-36) % RDW 14.6 (11.6-14.8) % Plt Count 493 H (150-400) X10^3/uL Neut % (Auto) 66.5 (50-75) % Lymph % (Auto) 21.0 L (25-40) % [place] % (Auto) 7.1 (3-14) % Eos % (Auto) 4.8 H (2-4) % Baso % (Auto) 0.6 (0-2) % Neut # (Auto) 8200 H (8310-5812) /uL Lymph # (Auto) 2600 (3937-8585) /uL [place] # (Auto) 900 (0-900) /uL Eos # (Auto) 600 H (0-450) /uL Baso # (Auto) 100 (0-100) /uL Sodium 138 (137-145) mmol/L Potassium 4.0 (3.4-5.1) mmol/L Chloride 104 (98-107) mmol/L Carbon Dioxide 25 (22-32) mmol/L BUN 10 (7-17) mg/dL Creatinine 0.78 (0.52-1.04) mg/dL Estimated GFR > 60 (>60) mL/min BUN/Creatinine Ratio 12.8 (6-22) Glucose 96 (70-100) mg/dL Lactate 0.5 L (0.7-2.1) mmol/L Calcium 9.4 (8.4-10.2) mg/dL Total Bilirubin 0.3 (0.2-1.3) mg/dL AST 18 (14-36) IU/L ALT 9 (<35) IU/L Alkaline Phosphatase 55 (38-126) U/L Total Protein 7.8 (6.3-8.2) g/dL Albumin 4.4 (3.5-5.0) g/dL Globulin 3.4 (1.7-4.1) g/dL Albumin/Globulin Ratio 1.3 (1.0-2.8) Lipase 119 (23-300) U/L Procalcitonin < 0.030 (<0.5) ng/mL Urine RBC None seen (0-5/HPF) Urine WBC 10-30/hpf H (0-5/HPF) Ur Squamous Epith Cells None seen (0-5/HPF) Urine Bacteria Few (2-10) H (None) Ur Culture Indicated? Specimen cultured Vol Urine Centrifuged 10ml (spun) Urine Test Negative (Negative) Urine Dip Bedside Urine Glucose Negative Bedside Urine Bilirubin - Negative Bedside Urine Ketone - Negative Urine Specific [place] 1.025 Bedside Urine Occult Blood +/- Bedside Urine pH 6.0 Bedside Urine Protein - Negative Bedside Urine Urobilinogen - Negative Bedside Urine Nitrite - Negative Bedside Urine Leukocytes +/- [address] scan - abdomen/pelvis: Radiologist's Impression: PROCEDURE: CT ABDOMEN PELVIS W CON INDICATIONS: Recent hysterectomy with bladder injury now with cellulitis TECHNIQUE: After the administration of intravenous contrast, axial sections acquired from the lung bases to the pubic symphysis. Coronal and sagittal reformats were performed. For radiation dose reduction, the following was used: automated exposure control, adjustment of mA and/or kV according to patient size. COMPARISON: [facility], CT, CT CYSTOGRAM, 06/01/2024, 10:02. FINDINGS: Image quality: Diagnostic. Lower Chest: No significant findings. ABDOMEN: Liver: No solid mass. Gallbladder: No radiopaque gallstones or wall thickening. Biliary ducts: No biliary dilation. Pancreas: No ductal dilation. Spleen: Size is within normal limits. Adrenal Glands: No adrenal nodules. Kidneys and Ureters: No hydronephrosis. No solid mass. No complex renal cystic lesion which requires follow up. Stomach and Bowel: Normal colonic caliber, without significant wall thickening. Mild fecal stasis in the colon is seen. No peritoneal abscess collection. Peritoneum: No abnormal intraperitoneal fluid. No free air. Ventral Wall: Enlargement of lower rectus abdominus muscles with heterogeneous enhancement and ill-defined fluid collection anterior to the rectus muscles in lower abdomen/pelvis within abdominal wall subcutaneous soft tissue and show mild peripheral enhancement and extensive surrounding fat stranding and overlying skin thickening. There is likely communication with adjacent left lower rectus abdominus muscle with possible ill-defined intramuscular fluid collection. Abdominal Nodes: No retroperitoneal or mesenteric adenopathy by size criteria. Vessels: Aorta and inferior vena cava are normal in size. PELVIS: Pelvic Organs: Unremarkable. Bladder: No bladder wall thickening, accounting for underdistention. Pelvic Nodes: No enlarged lymph nodes. Miscellaneous: No inguinal hernias are seen. Bones: No aggressive osseous abnormality. IMPRESSION: 1. Extensive cellulitis in lower anterior abdominal wall/pelvic wall with interval worsening of rectus muscle swelling and interval development of ill-defined peripherally enhancing fluid collection in anterior lower abdominal/pelvic wall subcutaneous soft tissue concerning for developing abscess collection and possible intramuscular abscess collection. 2. There is no definite intraperitoneal extension of the abscess collection. No peritoneal free fluid or free air. 3. Other findings are not significantly changed from recent CT cystogram study. MDM Narrative Medical decision making narrative: Patient does have findings that are consistent with a cellulitis. Labs were ordered. Does have a leukocytosis. Blood cultures ordered. Antibiotics started. CT scan does show cellulitis and concern for beginnings of an abscess. Dr. Fragoso with dump [employer] who is the operative surgeon evaluated the patient in the emergency department. Plan will be is to admit to the hospital for IV antibiotics. Discharge Plan Departure Patient Disposition: Home Clinical Impression: Post-operative infection
[2024-06-03 19:50] LABS: Bacteria Urine Few (2-10); Culture Indicated Urine Specimen Cultured; RBC Urine None Seen (0-5/HPF); Squamous Epithelial Cell Urine None Seen (0-5/HPF); Urine Volume 10mL (spun); WBC Urine 10-30/HPF (0-5/HPF)
[2024-06-03 20:00] LABS: Lactate (Lactic Acid) 0.5 mmol/L (0.7-2.1)
[2024-06-03] MEDS: cefTRIAXone 1,000 MG in SODIUM CHLORIDE 0.9% 100 ML 200 MG IV (20:01)
[2024-06-03 20:18] LABS: Procalcitonin < 0.030 ng/mL (<0.5)
--- NOTE | 2024-06-03 20:51 | PM.GYNHP.1 ---
History of Present Illness History of Present Illness Reason for admission: other (wound infection) Narrative: Renetta Michael is a 38 year old female G0 who presented to the ED with a fever, chills and pain and redness at incision. Pt underwent a LSCH/bilat salpingectomy 2 wks ago with an inadverdent cystotomy with repair. Had a CT cystogram on 06/01 which showed no spill. She has been able to void normally. Last evening developed aching and feeling warm with chills. This morning had a temp of 101. PFSH Medical History Epilepsy Surgical History Hx of sinus surgery (2010) Hx of fusion of cervical spine (2007) Hx of brain surgery (2008) Social History household members: family Smoking Status: Former smoker alcohol intake: current Meds Home Medications and Allergies Home Medications Medication Instructions Recorded Confirmed Type oxycodone 5 mg tablet 5 mg PO Q4H PRN pain #20 tabs 05/17/24 06/01/24 Rx ondansetron HCl 8 mg tablet 8 mg PO Q8H PRN nausea and 05/18/24 06/01/24 Rx vomiting #10 tabs tramadol 50 mg tablet 50 mg PO Q4H PRN pain #30 tabs 06/01/24 06/01/24 Rx Allergies Allergy/AdvReac Type Severity Reaction Status Date / Time No Known Drug Allergies Allergy Verified 06/01/24 10:36 Exam Vital Signs (past 8 hours): - 06/03/24 18:35 06/03/24 19:13 06/03/24 19:20 Temperature 98.4 F Pulse Rate 60 67 62 Respiratory Rate 18 Blood Pressure 110/61 Pulse Oximetry 100 100 100 Oxygen Delivery Method Room Air 06/03/24 19:20 06/03/24 19:30 06/03/24 19:30 Temperature Pulse Rate 59 L Respiratory Rate Blood Pressure 124/66 115/62 Pulse Oximetry 100 Oxygen Delivery Method 06/03/24 20:00 06/03/24 20:00 06/03/24 20:15 Temperature Pulse Rate 65 69 Respiratory Rate Blood Pressure 109/68 Pulse Oximetry 100 100 Oxygen Delivery Method 06/03/24 20:15 06/03/24 20:30 Temperature Pulse Rate 68 Respiratory Rate Blood Pressure 115/73 Pulse Oximetry 100 Oxygen Delivery Method Oxygen Delivery Method Room Air Narrative Exam Narrative: Gen: Lying on gurney, NAD Abdomen: Soft and flat. Incision: On the left side, there is an area of erythema. No fluctuance. The area is outlined. CT: Cellulitis. Small fluid collection. Objective Labs 06/03/24 18:55 06/03/24 18:55 Labs: Laboratory Results - last 24 hr 06/03/24 06/03/24 18:55 19:21 WBC 12.3 H RBC 4.15 Hgb 10.8 L Hct 33.1 L MCV 79.8 L MCH 26.0 MCHC 32.6 RDW 14.6 Plt Count 493 H Neut % (Auto) 66.5 Lymph % (Auto) 21.0 L [place] % (Auto) 7.1 Eos % (Auto) 4.8 H Baso % (Auto) 0.6 Neut # (Auto) 8200 H Lymph # (Auto) 2600 [place] # (Auto) 900 Eos # (Auto) 600 H Baso # (Auto) 100 Sodium 138 Potassium 4.0 Chloride 104 Carbon Dioxide 25 BUN 10 Creatinine 0.78 Estimated GFR > 60 BUN/Creatinine Ratio 12.8 Glucose 96 Lactate 0.5 L Calcium 9.4 Total Bilirubin 0.3 AST 18 ALT 9 Alkaline Phosphatase 55 Total Protein 7.8 Albumin 4.4 Globulin 3.4 Albumin/Globulin Ratio 1.3 Lipase 119 Procalcitonin < 0.030 Urine RBC None seen Urine WBC 10-30/hpf H Ur Squamous Epith Cells None seen Urine Bacteria Few (2-10) H Ur Culture Indicated? Specimen cultured Vol Urine Centrifuged 10ml (spun) Urine Test Negative Assessment & Plan Assessment & Plan narrative: Assessment: 38 year old G0 with wound cellulitis Plan: Admit for Observation IV antibiotics Antiemetics Reassess in the am for need for I&D Time-Based Coding :: [TOTAL MINUTES] spent with patient and on the chart (including review of chart, obtaining history, exam, reviewing outside data, placing orders, documenting exam and treatment plan, and counseling patient) on [DATE].
[2024-06-03] MEDS: DOCUSATE 100 MG CAPSULE PO (21:31)
[2024-06-03] MEDS: IBUPROFEN 600 MG TABLET PO (21:31)
[2024-06-03] MEDS: ACETAMINOPHEN 325 MG TABLET 650 MG PO (21:31)
[2024-06-03] MEDS: CEFAZOLIN VIAL 1 GM in SODIUM CHLORIDE 0.9% 100 ML IV (21:32)
[2024-06-03] MEDS: LACTATED RINGERS 1,000 ML 100 ML IV (21:32)
[2024-06-03] MEDS: CLINDAMYCIN 600 MG/50 ML PIGGYBACK 50 MG IV (22:18)
[2024-06-04] VITALS: BP 104/65; PULSE 62; RESP 14; TEMP 36.6; O2SAT 99
[2024-06-04 04:00] VITALS: BP 102/68; PULSE 63; RESP 15; TEMP 36.5; O2SAT 98
[2024-06-04 04:45] LABS: Add Manual Diff / Slide Review NO; Basophils Absolute Auto 100 /uL (0-100); Basophils Percent Auto 0.9 % (0-2); Eosinophils Absolute Auto 700 /uL (0-450); Hematocrit 29.2 % (36-46); Hemoglobin 9.8 g/dL (12.0-16.0); Lymphocytes Absolute Auto 2300 /uL (1100-4500); Lymphocytes Percent Auto 24.6 % (25-40); Mean Corpuscular HGB Conc 33.5 % (30-36); Mean Corpuscular Hemoglobin 26.7 PG (26-34); Mean Corpuscular Volume 79.7 fL (80-100); Monocytes Absolute Auto 900 /uL (0-900); Monocytes Percent Auto 9.8 % (3-14); Neutrophils Absolute Auto 5400 /uL (1500-7000); Neutrophils Percent Auto 57.7 % (50-75); Platelet Count 383 X10^3/uL (150-400); Red Blood Cell Count 3.66 X10^6/uL (4.0-5.2); Red Cell Distribution Width 14.6 % (11.6-14.8); White Blood Cell Count 9.4 X10^3/uL (4.5-11.0)
[2024-06-04] MEDS: CLINDAMYCIN 600 MG/50 ML PIGGYBACK 50 MG IV ×2 (05:29→13:33)
[2024-06-04 08:00] VITALS: BP 116/76; PULSE 56; RESP 15; TEMP 36.5; O2SAT 100
--- NOTE | 2024-06-04 08:45 | DI.US.S_ITS ---
PROCEDURE: US ABDOMEN LIMITED INDICATIONS: cellulitis of lower incision, please evaluate for abscess TECHNIQUE: Real-time focused scanning was performed of the abdomen, with image documentation. COMPARISON: [facility], CT, CT ABDOMEN PELVIS W CON, 06/03/2024, 20:03. FINDINGS: Scan is performed at the area of the incision involving the pubic region. Within this area, there is nonvascular poorly defined fluid seen, which measures 1.4 x 0.5 x 1.9 cm. No focal abscess can be seen. IMPRESSION: Negative for abscess. At the area of clinical concern, there is nonvascular poorly defined fluid seen, likely related to postoperative seroma or hematoma. Phlegmon is possible, however. Dictated by: Jose Muñoz M.D. on 06/04/2024 at 9:26 Approved by: Jose Muñoz M.D. on 06/04/2024 at 9:27
[2024-06-04] MEDS: ACETAMINOPHEN 325 MG TABLET 650 MG PO ×2 (09:25→15:21)
--- NOTE | 2024-06-04 10:28 | CM.DANOTE ---
Patient is a 38 yo female who was admitted OBS Status on 06/03/24 for Post Surgery Infection. Pt has MIGUEL BAI and CORAL for insurance and her PCP is eNha Hopkins at [facility]. EMR was reviewed. Per OBGYN, pt with recent fallopian tube removal and accidental bladder involvement and admitted for post surgical infection and IV-Abx initiated and ultrasound today to determine if pt stable for discharge home or further surgical intervention needed. SW met bedside with pt and her mom and explained role and they confirm that they live on [facility] at home and both are very active and independent at baseline and pt does not use DME for ambulation and no hx of HH or SNF. Pt works and confirms her PCP remains Dr. Lew who is now at [facility]. Pt and mother hopeful for discharge home today and mother transported pt to the hospital and has been staying in a hotel locally so she is available to provide transport home at d/c. Preference is home today if stable and they deny any further discharge planning needs other than a Priority Boarding Pass as ferry system remains challenging and difficult to get a reservation day of discharge. SW updated RN. Plan: SW to follow for ultrasound results to confirm if pt stable for d/c today vs further surgical intervention and to provide Priority Boarding pass at discharge. BASILIA Portillo Discharge Planning/Care Management CM Discharge Assessment Start: 06/04/24 10:26 Freq: Status: Active Protocol: Document 06/04/24 10:26 BF (Rec: 06/04/24 10:27 BF [id number]) Discharge Planning Assessment Assigned Desk Representative BASILIA Guido DPOA/Assigned Designee Name informally mother Ana Contact Information [phone] Advance Directives? No Advance Directives on File No History Provided By Patient,Family Member,Medical Record Has Patient been admitted in last 30 No days? Prior Living Arrangements House Household Members family Type of transporation used prior to Drives own vehicle admit Independent with ADL's Yes Is patient alert and oriented? Yes Caregiver for Another No Barriers to Discharge No Discharge Plan Home Transportation Arrangement mother bedside and plans to transport back to [place] at d/c Referrals Initiated Other Additional Comment Priority Board Pass back to [place] needed Whiteboard Updated in Patient Room with Yes name and ext. # of Desk Representative Review Status In Process Please Provide Date Initial DC 06/04/24 Assessment Was Performed Next Review Type Continued Stay Review
[2024-06-04 12:00] VITALS: BP 114/66; PULSE 82; RESP 16; TEMP 37.4; O2SAT 100
--- NOTE | 2024-06-04 16:07 | CM.SWNOTE ---
DCP/ENTERTAINMENT & MEDIA CORRESPONDENT Note cellular equipment installer in acute care requests ENTERTAINMENT & MEDIA CORRESPONDENT to request priority ferry boarding pass for patient as she is discharging this evening to [facility]. ENTERTAINMENT & MEDIA CORRESPONDENT submits request and prints proof of priority boarding and provides it to charge nurse to hand to patient. Plan: patient to d/c to home upon medical clearance with priority boarding pass. Briseyda Hernandez, FOCUSED FACTORY MANAGER
--- NOTE | 2024-06-04 17:47 | PC.NURSE ---
Patient is A&OX4, independent in Room. She reports pain is tolerable. Cellulitis sore LYNDSAY. Patient is cleared for discharge with antibiotics, probiotics. Mother and patient at bedside verbalize understanding of discharge medications, activity limitations, s/sx of worsening infection as well as follow up appointment. She is escorted by RN to private vehicle with mother at [phone] with all of her belongings including discharge meds as well as priortiy boarding pass to d/c home to [facility] this evening.
--- NOTE | 2024-06-05 01:03 | PM.DS.1 ---
History of Present Illness History of Present Illness Date Patient Seen: 06/04/24 Time Patient Seen: 15:30 Chief complaint: Fever/Redness, Sx Site Discomfort Narrative: Patient is a 38-year-old 0 who was admitted on June 03, 2024 with the surgical site cellulitis. Patient underwent a laparoscopic supracervical hysterectomy 2 weeks ago with an inadvertent cystotomy which was repaired at the time of surgery. She had a CT cystogram on June 01, 2024 and this showed no leak. She has been voiding normally since then. She began having a fever on the evening of June 02, 2024 which worsened on the morning of June 03, 2024. She was also having chills. She reports some redness and increased tenderness on the left side of the incision. She had a CT scan in the emergency department which did not show an abscess, but showed cellulitis. She was admitted for observation and started on IV antibiotics. The area of cellulitis was outlined with a marker. Today she is feeling better. She is afebrile. Her white blood count is back to normal. The area of erythema around the incision is decreased. Discharge Providers Provider Date of admission: 06/03/24 20:32 Discharge Date: 06/04/24 Primary care physician: Neha Lew MD Discharge provider: Bertha Fragoso MD Exam Vital Signs (past 8 hours): Oxygen Delivery Method Room Air Oxygen Flow Rate 0 Narrative Exam Narrative: Generally: Patient lying in bed, no acute distress Incision: Decreased erythema and tenderness at the suprapubic incision. No fluctuance. Objective Labs 06/04/24 04:10 06/03/24 18:55 Labs: Laboratory Results - last 24 hr 06/04/24 04:10 WBC 9.4 RBC 3.66 L Hgb 9.8 L Hct 29.2 L MCV 79.7 L MCH 26.7 MCHC 33.5 RDW 14.6 Plt Count 383 Neut % (Auto) 57.7 Lymph % (Auto) 24.6 L Carlton % (Auto) 9.8 Eos % (Auto) 7.0 H Baso % (Auto) 0.9 Neut # (Auto) 5400 Lymph # (Auto) 2300 Carlton # (Auto) 900 Eos # (Auto) 700 H Baso # (Auto) 100 PFSH Medical History Epilepsy Surgical History Hx of sinus surgery (2010) Hx of fusion of cervical spine (2007) Hx of brain surgery (2008) Social History household members: family Smoking Status: Former smoker alcohol intake: current Discharge Assessment & Plan Assessment and Plan Assessment: Wound cellulitis, improving Plan of Treatment: Discharge to home Amoxicillin 875 mg p.o. b.i.d. for 10 days Probiotics Diflucan x2 as needed We will follow-up by phone in the next 1-2 days Discharge Plan Discharge Plan Patient Disposition: Home Provider Discharge Comment: Call with fever, chills, or worsening redness around the incision Call with increasing pain Discharge orders & Medications Prescriptions: New amoxicillin-pot clavulanate 875-125 mg tablet 1 tab PO BID Qty: 20 0RF Probiotic Acidophilus 250 million cell capsule 500 mmu cells PO TID Qty: 30 0RF fluconazole 150 mg tablet 150 mg PO .once Qty: 2 0RF Rx Instructions: Take 1 tablet with symptoms of yeast, may repeat in 5 days if still symptomatic Continued tramadol 50 mg tablet 50 mg PO Q4H PRN (Reason: pain) Qty: 30 0RF oxycodone 5 mg tablet 5 mg PO Q4H PRN (Reason: pain) Qty: 20 0RF ondansetron HCl 8 mg tablet 8 mg PO Q8H PRN (Reason: nausea and vomiting) Qty: 10 0RF Follow up/Referrals: Bertha Fragoso MD [Physician] - (We will follow-up by phone in the next few days) Diet/Activity/Treatments Diet: Regular Activity: No heavy lifting Skin/Wound/Dressing Care Report to your healthcare provider any signs of infection, such as:: chills, fever, increased pain, unusual drainage and unusual redness Other wound treatment: May use warm compresses or ice as needed Visit Report/Discharge Packet Instructions: DI for Cellulitis -- Adult, DI for Prescription Opioid Use Stand Alone Forms: Patient Portal/API, Stroke Signs & Symptoms Discharge Data Primary Care Provider: Neha Lew Attending Provider: Bertha Fragoso Admit Date/Time: 06/03/24 20:32 Quality VTE Deep Vein Thrombosis/Pulmonary Embolism Present on Admission: No
--- NOTE | 2024-06-17 21:32 | PC.NURSE ---
LATE ENTRY NURSING NOTE on 06/03/24 @ 2132 an infusion of cefazolin 1gm in 100 mL of sodium chloride 0.9% @ a rate of 200 mLs/hr was started. the infusion completed on 06/03/24 @ 2202.
== END 2024-06-04 16:45 | disposition home or self-care (01) ==
LOC: ED 20:29 → AC 20:33
PROVIDERS: Admitting Provider Obstetrics & Gynecology; Emergency Provider Emergency Medicine; PCP Family Medicine; Visit Provider Obstetrics & Gynecology
DX: L03.319 Cellulitis of trunk, unspecified (principal); R50.9 Fever, unspecified; Z98.890 Other specified postprocedural states
CPT/HCPCS: 36415; 74177; 76705; 80053; 81003; 81015; 81025; 83605; 83690; 84145; 85025; 87040; 87077; 87086; 87186; 96365; 96366; 96367; 99284; G0378; J0690; J0696; Q9967

== ENCOUNTER 2024-06-09 09:05 | Day surgery (SDC) | payer OTHER, MEDICAID, SELFPAY ==
[2024-06-03 21:42] VITALS: BMI 24.2
[2024-06-09] VITALS (8 sets, daily range): BP systolic 88–106; BP diastolic 44–68; PULSE 52–79; RESP 11–16; TEMP 36.6–36.9; O2SAT 95–99; BMI 24.2
[2024-06-09] MEDS: LACTATED RINGERS 1,000 ML 42 ML IV ×2 (09:32→12:01)
--- NOTE | 2024-06-09 10:18 | PM.GYNHP.1 ---
History of Present Illness History of Present Illness Reason for admission: other (Abscess of the incision) Narrative: Renetta Michael is a 38 year old female 0 who underwent a laparoscopic supracervical hysterectomy on May 17, 2024. She had an inadvertent cystotomy which was repaired by Urology. She ended with a mini-laparotomy suprapubic region. Last week was seen due to with fever and some redness around the incision. She was diagnosed with cellulitis and was placed on antibiotics. She developed another fever yesterday. The redness worsened over 24 hours. On ultrasound today there is a small pocket of fluid under the incision. [facility] Medical History Seizures Chicken pox (~1989) Recurrent sinusitis (~1989) Irregular menstrual cycle (~2022) Herpes (~2009) Heavy menstrual period (~2020) Pelvic pain Abnormal uterine bleeding Dysmenorrhea (~2020) Enlarged uterus Fibroid uterus (~2022) Endometrial hyperplasia Epilepsy Surgical History Anesthesia Hx of sinus surgery (2010) Hx of fusion of cervical spine (2007) Hx of brain surgery (2008) Family History (Updated 06/07/24 @ 20:45 by Amber Peterson) Father Hyperlipidemia Mother Multiple sclerosis Brother Alopecia Grandfather Cancer Grandfather History of heart disease Hyperlipidemia Hypertension Grandmother Mental health problem Social History household members: family Smoking Status: Former smoker alcohol intake: current Meds Home Medications and Allergies Home Medications Medication Instructions Recorded Confirmed Type oxycodone 5 mg tablet 5 mg PO Q4H PRN pain #20 tabs 05/17/24 06/04/24 Rx ondansetron HCl 8 mg tablet 8 mg PO Q8H PRN nausea and 05/18/24 06/04/24 Rx vomiting #10 tabs tramadol 50 mg tablet 50 mg PO Q4H PRN pain #30 tabs 06/01/24 06/04/24 Rx Lactobacillus acidophilus 250 500 mmu cells (2 x 250 million 06/04/24 Rx million cell capsule (Probiotic cell) PO TID #30 caps Acidophilus) amoxicillin 875 mg-potassium 1 tab PO BID #20 tabs 06/04/24 Rx clavulanate 125 mg tablet fluconazole 150 mg tablet 150 mg PO .once #2 tabs 06/04/24 Rx Allergies Allergy/AdvReac Type Severity Reaction Status Date / Time No Known Drug Allergies Allergy Verified 06/09/24 09:28 Exam Vital Signs (past 8 hours): - 06/09/24 09:28 Temperature 97.8 F Pulse Rate 60 Respiratory Rate 16 Blood Pressure 106/68 Pulse Oximetry 97 Oxygen Delivery Method Room Air Oxygen Delivery Method Room Air Narrative Exam Narrative: Generally: A well-developed, well-nourished female, no acute distress Lungs: Clear to auscultation bilaterally Cardiovascular: Regular rate and rhythm Incision: Erythema proximally 5 cm x 3.5 cm on the left side of the incision. There is a small amount of fluctuance. There is some sloughing of tissue of the skin. Ultrasound: A 5 x 3 cm pocket of fluid under the incision. Assessment & Plan Assessment & Plan narrative: Assessment: 38-year-old 0 with an abscess of the mini-laparotomy incision Plan: Incision and drainage and packing of abscess cavity The risks, benefits, and alternatives to the procedure were explained to the patient. The risks including bleeding and infection. She understands these risks and agrees to proceed. A full par Q was held and consent form was signed. Time-Based Coding :: [TOTAL MINUTES] spent with patient and on the chart (including review of chart, obtaining history, exam, reviewing outside data, placing orders, documenting exam and treatment plan, and counseling patient) on [DATE].
--- NOTE | 2024-06-09 10:21 | PM.PREOP ---
Pre-operative Note Interval Note History & Physical reviewed/Exam performed by Physician: Yes Changes to H&P: No H&P completed within 30 days and has changed as indicated here:: 06/09/24
[2024-06-09] MEDS: CEFAZOLIN 2 GM/100 ML PREMIX 100 ML IV (11:13)
--- NOTE | 2024-06-09 11:17 | SUR.OPER ---
Supine on padded OR bed, head on pillow, arms secured on padded arm boards at <90 degrees abduction, legs uncrossed, safety belt at thigh, tape over blanket over lower legs.
[2024-06-09] MEDS: BUPIVACAINE 0.5% W/ EPI (PF) 30 ML VIAL INJ (11:29)
--- NOTE | 2024-06-09 11:38 | PM.GYNOP.1 ---
Operative Date/Time/Diagnoses Date of procedure: 06/09/24 Time of procedure: 11:38 Pre-op diagnosis: Abscess of mini-laparotomy incision Post-op diagnosis: same Procedure & Clinicians Procedure: Procedures Operation Date: 06/09/24 11:30 Actual Procedure Side Surgeon p Incision and Drainage Wound/TYING MACHINE OPERATOR Bertha Fragoso MD Indications: 38-year-old 2 weeks status post a laparoscopic supracervical hysterectomy with an inadvertent cystotomy. Had a mini-laparotomy incision to repair bladder. Developed cellulitis last week. Was getting better until yesterday when she developed a fever and worsening erythema around the incision. Ultrasound in the office this morning showed a pocket of pus. Surgeon: Bertha Fragoso Anesthesia Type: General (LMA) and Local Operative Notes Findings: 5 cm x 3 cm cavity Thin cloudy fluid Closure Type: not applicable Specimen(s): other (Aerobic and anaerobic cultures of the wound) Estimated blood loss (mL): 2 Blood products transfused: none Procedure in detail: After informed consent was obtained, the patient was taken to the operating room where she was placed in the dorsal supine position. After adequate LMA general anesthesia was achieved, she was prepped and draped in the usual sterile fashion. Using a # 15 blade, a 2 cm incision was made through the previous incision to the left of midline over the erythematous, fluctuant area. There was drainage of thin cloudy fluid. Using a sterile Q-tip, the fascia was checked and was intact. Hemostats were used to break up any small pockets. 20 cc of 0.25% Marcaine were injected into the wound and in the subcutaneous tissue. The wound was packed with approximately 20 cm 1/2 iodoform gauze. 4x4s were placed over the incision. A dressing was placed. Complications: none Post-operative Condition: stable Disposition: PACU Plan for aftercare: Home after recovery
== END 2024-06-09 12:32 | disposition home or self-care (01) ==
PROVIDERS: PCP Family Medicine; Referring Provider Obstetrics & Gynecology; Visit Provider Obstetrics & Gynecology
PROC: (CPT 10180; principal; 2024-06-09 11:30)
DX: T81.41XA Infection following a procedure, superficial incisional surgical site, initial encounter (principal)
CPT/HCPCS: 10180; 87070; 87075; 87077; 87147; 87186; 87205; J0690; J1100; J1885; J2250; J2405; J2704; J3010